=== PATIENT | female | born 1990 | race Caucasian/White ===

== ENCOUNTER 2025-02-07 10:22 | Emergency (ER) | payer BC, SELFPAY ==
--- NOTE | ~2025-02-07 | CT_ITS ---
CT abdomen pelvis w con Clinical History: rlq . Comparison: None Technique: Axial images lung bases to symphysis pubis 100 mL Omnipaque 350 Coronal, sagittal reformats CT images acquired with automatic exposure control for dose reduction DLP: 244 mGy-cm Findings: Lung bases: Clear. Visualized heart and pericardium: Unremarkable. Liver: Unremarkable. Gallbladder: Unremarkable. Spleen: Unremarkable. Pancreas: Unremarkable. Adrenal glands: Unremarkable. Kidneys: Right kidney- No hydronephrosis. No renal stones. Left kidney- No hydronephrosis. No renal stones. Distal esophagus/stomach: Unremarkable. Small bowel loops: Normal caliber and wall thickness. Colon: Normal caliber and wall thickness. Normal RLQ appendix. Nodes: No enlarged nodes. Peritoneum: No ascites. No free air. Urinary bladder: Unremarkable. Uterus: Unremarkable. Adnexa: No masses. Small pelvic free fluid. Bones: No acute bony abnormality. Soft tissues: Unremarkable. Aorta: No aneurysm or dissection. IVC: Unremarkable. Main portal vein/SMV/splenic vein: Patent. IMPRESSION: 1. Pelvic free fluid, slightly more than expected for normal physiologic levels. 2. Consider pelvic sonography. 3. Otherwise no acute abnormality. Reviewed, dictated and finalized at location R. IMPRESSION: 1. Pelvic free fluid, slightly more than expected for normal physiologic level s. 2. Consider pelvic sonography. 3. Otherwise no acute abnormality.
--- NOTE | ~2025-02-07 | US_ITS ---
EXAMINATION: US transvaginal, 02/07/2025 11:53 CDT HISTORY: rlq pain Comparison: None Technique: Madrid-scale and color Doppler images were obtained. Findings: Uterus: Uterus anteverted 6.2 x 3.6 x 3.6 cm. . Endometrium 12 mm. Right Ovary:Right ovary 3 x 2.8 x 1.8 cm, no adnexal mass, normal flow. Left Ovary: Left ovary 2.1 x 2.4 x 2.5 cm, no adnexal mass, normal flow. Free Fluid: Moderate free fluid noted. Impression: Moderate free fluid which may relate to sequelae of a ruptured ovarian cyst. Negative for torsion. Reviewed, dictated and finalized at location P. Impression: Moderate free fluid which may relate to sequelae of a ruptured ovarian cyst. Ne gative for torsion.
[2025-02-07 10:22] VITALS: BP 100/77; PULSE 70; RESP 18; TEMP 36.6; O2SAT 100
[2025-02-07 10:40] LABS: Hematocrit 42.7 % (35.0-49.0); Hemoglobin 14.4 g/dL (12.0-15.0); Immature Granulocyte Percent A 0.5 % (0.0-0.0); Lymphocytes Absolute Auto 2.63 K/mm3 (1.10-4.50); Mean Corpuscular HGB Conc 33.7 g/dL (32-36); Mean Corpuscular Hemoglobin 30.7 pg (27.0-31.0); Mean Corpuscular Volume 91.0 fL (78.0-102.0); Nucleated Red Blood Cells Absolute Auto 0.00 K/mm3 (0.00-0.00); Nucleated Red Blood Cells Perc 0.0 % (0-0.0); Platelet Count Result 254 K/mm3 (150-420); Red Blood Count 4.69 M/mm3 (4.20-5.40); White Blood Count 14.9 K/mm3 (4.8-10.8)
[2025-02-07 10:51] LABS: Alanine Aminotransferase 18 U/L (6-35); Albumin Level 4.9 g/dL (3.5-5.1); Alkaline Phosphatase 86 U/L (38-126); Anion Gap 11 mmol/L (4-12); Aspartate Amino Transferase 29 U/L (14-36); Bilirubin,Total 1.5 mg/dL (0.2-1.3); Blood Urea Nitrogen 12 mg/dL (7-17); Calcium 10.1 mg/dL (8.4-10.2); Carbon Dioxide 26 mmol/L (22-30); Chloride 106 mmol/L (98-107); Estimated CRCL calculation 88 ml/min; Estimated Glomerular Filt Rate > 60; Glucose 90 mg/dL (65-110); Osmolality Calculated 295 mOsm/kg (285-295); Potassium 3.7 mmol/L (3.4-5.0); Sodium 143 mmol/L (137-145); Total Protein 9.7 g/dL (6.3-8.2)
[2025-02-07] MEDS: KETOROLAC 30 MG/ML VIAL (*BKC) IV PUSH (10:57)
[2025-02-07] MEDS: SODIUM CHLORIDE 0.9% IV 1,000 ML 150 ML IV CONT (10:57)
[2025-02-07 11:08] LABS: Beta HCG Quantitative < 2.39 mIU/ML
--- NOTE | 2025-02-07 11:14 | ED.ABDPAIN ---
HPI - Abdominal Pain General Chief Complaint: Abdominal Pain Stated Complaint: ABD PAIN Time Seen by Provider: 02/07/25 10:23 Source: patient Mode of arrival: ambulatory Limitations: no limitations History of Present Illness HPI narrative: 34-year-old here with a complains of right-sided abdominal pain which started almost 2 days ago. also complains of nausea with no significant vomiting. Denies any fever or chills. MD elicited complaint: abdominal pain Pertinent past history: none Onset (ago): day(s) (2) Pain Consistency: constant Location: RUQ and RLQ Severity: moderate Quality: aching Radiation: RLQ Migration to: no migration Exacerbating factors: nothing Relieving factors: nothing Associated symptoms: nausea Related Data Home Medications ?Medication ?Instructions ?Recorded ?Confirmed ?Last Taken ?Type PROPANOLOL 20 mg PO BID 02/07/25 02/07/25 Unknown History Allergies Allergy/AdvReac Type Severity Reaction Status Date / Time diphenhydramine (From Allergy Unknown Unknown Verified 02/07/25 10:35 Benadryl) Penicillins Allergy Unknown Unknown Verified 02/07/25 10:35 Review of Systems Review of Systems: All systems reviewed & are unremarkable except as noted in HPI and below Constitutional: Constitutional: Reports no additional constitutional complaints Eyes: Eyes: Reports no additional eye complaints ENT: Reports system reviewed and no additional complaints, except as documented Cardiovascular: Cardiovascular: Reports no additional cardiovascular complaints Respiratory: Respiratory: Reports no additional respiratory complaints Gastrointestinal: Gastrointestinal: Reports as per HPI Integumentary/Breasts: Skin/Breast: Reports system reviewed and no additional complaints, except as docu Neurologic: Reports system reviewed and no additional complaints, except as documented Exam Narrative: GENERAL: Well-appearing, well-nourished, and in no acute distress. HEAD: Normocephalic, atraumatic. EYES: PERRLA and EOMI. ENT: Nares clear, no rhinorrhea or epistaxis. Mucous membranes moist. NECK: Supple. CHEST: Clear to auscultation. No respiratory distress. HEART: Regular rate and rhythm. No murmur heard. Normal peripheral pulses. ABDOMEN: Soft,tender on the right side of the abdomen more so in the right lower quadrant, nondistended, normal active bowel sounds. EXTREMITIES: Normal range of motion. No edema. SKIN: Warm, dry, no rash. NEURO: No focal deficits. Alert and oriented x3. PSYCH: Normal mood and affect. Course Course Emergency Course: Attention is given IV Toradol for pain control Zofran for nausea CT and lab work: T CT showed ruptured ovarian cyst. Patient sees a pain is slightly better advised her to take it easy for a few days, follow-up with the primary doctor Vital Signs Vital signs: Vital Signs Temperature 36.6 C 02/07/25 10:22 Pulse Rate 70 02/07/25 10:22 Respiratory Rate 18 02/07/25 10:22 Blood Pressure 100/77 02/07/25 10:22 Pulse Oximetry 100 02/07/25 10:22 Oxygen Delivery Room Air 02/07/25 10:22 Temperature 36.6 C 02/07/25 10:22 Pulse Rate 70 02/07/25 10:22 Respiratory Rate 18 02/07/25 10:22 Blood Pressure 100/77 02/07/25 10:22 Pulse Oximetry 100 02/07/25 10:22 Oxygen Delivery Room Air 02/07/25 10:22 MDM - Abdominal Pain Differential Diagnosis Differential diagnosis: Likely abdominal pain, acute appendicitis, calculus of kidney, constipation and other (ovarian cyst or torsion or rupture) Medical Records Attestation: I reviewed the patient's medical records. Lab Data Attestation: I reviewed the patient's lab results. 02/07/25 10:35 02/07/25 10:35 Labs: Lab Results 02/07/25 Range/Units 10:35 WBC 14.9 H (4.8-10.8) K/mm3 RBC 4.69 (4.20-5.40) M/mm3 Hgb 14.4 (12.0-15.0) g/dL Hct 42.7 (35.0-49.0) % MCV 91.0 (78.0-102.0) fL MCH 30.7 (27.0-31.0) pg MCHC 33.7 (32-36) g/dL RDW 13.2 (11.6-14.4) % Plt Count 254 (150-420) K/mm3 MPV 10.0 (9.2-11.8) fl Immature Gran % (Auto) 0.5 H (0.0-0.0) % Neut % (Auto) 77.0 H (50.0-70.0) % Lymph % (Auto) 17.7 L (18.0-42.0) % Saunders % (Auto) 3.8 (2.0-11.0) % Eos % (Auto) 0.8 L (1.0-6.0) % Baso % (Auto) 0.2 (0.0-1.0) % Lymph # (Auto) 2.63 (1.10-4.50) K/mm3 Saunders # (Auto) 0.57 (0.10-0.90) K/mm3 Eos # (Auto) 0.12 (0.02-0.50) K/mm3 Baso # (Auto) 0.03 (0.00-0.10) K/mm3 Abs Immat Gran (auto) 0.07 H (0.00-0.00) K/mm3 Absolute Neuts (auto) 11.46 H (1.70-7.20) K/mm3 Absolute Nucleated RBC 0.00 (0.00-0.00) K/mm3 Nucleated RBC % 0.0 (0-0.0) % Sodium 143 (137-145) mmol/L Potassium 3.7 (3.4-5.0) mmol/L Chloride 106 (98-107) mmol/L Carbon Dioxide 26 (22-30) mmol/L Anion Gap 11 (4-12) mmol/L BUN 12 (7-17) mg/dL Creatinine 0.68 L (0.7-1.0) mg/dL Estim Creat Clear Calc 88 ml/min Estimated GFR > 60 (59 - ) Glucose 90 (65-110) mg/dL Calculated Osmolality 295 (285-295) mOsm/kg Calcium 10.1 (8.4-10.2) mg/dL Total Bilirubin 1.5 H (0.2-1.3) mg/dL AST 29 (14-36) U/L ALT 18 (6-35) U/L Alkaline Phosphatase 86 (38-126) U/L Total Protein 9.7 H (6.3-8.2) g/dL Albumin 4.9 (3.5-5.1) g/dL Beta HCG, Quant < 2.39 mIU/ML Imaging Data Radiologist's impression: ITS Impressions Abdomen/Pelvis CT 02/07/25 11:32 IMPRESSION: 1. Pelvic free fluid, slightly more than expected for normal physiologic levels. 2. Consider pelvic sonography. 3. Otherwise no acute abnormality. Transvaginal US 02/07/25 12:34 Impression: Moderate free fluid which may relate to sequelae of a ruptured ovarian cyst. Negative for torsion. Discharge Plan Discharge Clinical Impression: Abdominal pain, RLQ, Ovarian cyst rupture Patient Disposition: Home Condition: Stable Instructions: Ruptured Ovarian Cyst (ED) Patient Language: Albanian Prescriptions: New ibuprofen 600 mg tablet 600 mg PO Q6H PRN (Reason: pain) Qty: 30 0RF ondansetron 4 mg tablet,disintegrating 4 mg PO Q6-8H PRN (Reason: nausea and vomiting) Qty: 14 0RF No Action PROPANOLOL 20 mg PO BID Follow-up/Referrals: Jeremías Rivas MD [Physician, Internal Medicine]
[2025-02-07] MEDS: ONDANSETRON INJ 4 MG/2 ML VIAL IV PUSH (12:36)
[2025-02-07 12:55] VITALS: BP 102/78; PULSE 72; RESP 16; TEMP 36.6; O2SAT 100
== END 2025-02-07 12:55 | disposition home or self-care (01) ==
PROVIDERS: Emergency Provider Family Medicine; Referring Provider Internal Medicine
DX: N83.209 Unspecified ovarian cyst, unspecified side (principal)
CPT/HCPCS: 36415; 74177; 76830; 80053; 84702; 85025; 96361; 96374; 96375; 99284; J1885; J2405; J7030; Q9967

== ENCOUNTER 2025-02-25 14:08 | Emergency (ER) | payer BC, SELFPAY ==
--- OUTSIDE RECORDS SUMMARY | 2024-02-23 04:00 | XMS_ITS | Continuity of Care Document ---
Author Organization [facility] Address [address] [place] [address] Phone Care Team Providers Care Ecommerce Merchandising Manager Name Role Phone Aden Laws PT Unavailable Unavailable Procedures Procedure Date FCE Each 15min Therapeutic Activities Neuromuscular Re-Ed Therapeutic Exercise Manual Therapy Therapeutic Activities Neuromuscular Re-Ed Therapeutic Exercise Therapeutic Activities Neuromuscular Re-Ed Therapeutic Exercise Manual Therapy Progress Note Therapeutic Activities Neuromuscular Re-Ed Manual Therapy Therapeutic Exercise Therapeutic Activities Neuromuscular Re-Ed Therapeutic Exercise Manual Therapy Therapeutic Activities Neuromuscular Re-Ed Therapeutic Exercise Manual Therapy Therapeutic Activities Neuromuscular Re-Ed Manual Therapy PT Evaluation High Complexity Therapeutic Activities Neuromuscular Re-Ed Advance Directives Directive Yes / No Effective Date File Name No Information Encounters Encounter Description Practice Location Reason(s) For Visit Diagnoses Date Provider Providers Copied on Encounter [facility], [address], [place], [place], [id number], tel:[phone] [place] No Information Veto Samaniego. . Referring Provider: Dave Delacruz, [address], [place], [address]. tel:[phone] [facility], [address], [id number], [place] tel:[phone] [place] No Information Florence Zhang. [facility] [place], [address], [place]. tel:[phone] Referring Provider: Jennifer Stinson, [address], [place], [address]. tel:[phone] [facility], [address], [id number], tel:[phone] [place] No Information Florence Zhang. [facility] [place], [address], [place]. tel:[phone] Referring Provider: Jennifer Stinson, [address], [place], [address]. tel:[phone] [facility], [address], [id number], tel:[phone] [place] No Information Rivera Jennifer. . Referring Provider: Jennifer Stinson, [address], [place], [address]. tel:[phone] [facility], [address], [id number], [place] tel:[phone] [place] No Information Rivera Jennifer. . Referring Provider: [address], [place], [address]. tel:[phone] [facility], [address], [id number], tel:[phone] [place] No Information Rivera Jennifer. . Referring Provider: [address], [place], [address]. tel:[phone] [facility], [address], [id number], tel:[phone] [place] No Information Rivera Jennifer. . Referring Provider: Jennifer Stinson, [address], [place], [address]. tel:[phone] [facility], [address], [id number], tel:[phone] [place] No Information Rivera Jennifer. . Referring Provider: Jennifer Stinson, [address], [place], [address]. tel:[phone] [facility], [address], [id number], tel:[phone] [place] No Information Yissel Rivera. . Referring Provider: Jennifer Stinson, [address], [place], [address]. tel:[phone] Family History Family Member Type Diagnosis Age At Onset No Information Payers Payer name Insurance type Covered green party ID Authoriza tion(s) Med[employer] EPO WC SP WC [id number] Social History Type Description Quantity Date Captured Comments Sex Female Smoking Status No Information Chief Complaint And Reason For Visit No Information Reason For Referral Reason For Referral No Information Plan Of Treatment Date Type Action Status Referral Ordered: Referrals: Specialist. Evaluate and Treat (related to Adjustment disorder with depressed mood) ordered Referral Ordered: Depression: Depression management program timeframe: 1 Day. (related to Depression) ordered Referral Ordered: Clinical Psychology (related to Depression) ordered History Of Present Illness Encounter Date Complaint History Of Prese nt Illness No Information Functional Status Date Functional Assessmen t No Information Instructions Date Instruction Additional Infor mation No Information Assessments Type Assessment Date No Information Patient Care Teams Name Effective Dates (start - stop) Status Members No Information
--- OUTSIDE RECORDS SUMMARY | 2024-02-23 04:00 | XMS_ITS | Continuity of Care Document ---
Author Organization [facility] Address [address] [place] [address] Phone Care Team Providers Care Retail Manager In Training Name Role Phone Aden Laws PT Unavailable Unavailable Procedures Procedure Date FCE Each 15min Therapeutic Activities Neuromuscular Re-Ed Therapeutic Exercise Manual Therapy Therapeutic Activities Neuromuscular Re-Ed Therapeutic Exercise Therapeutic Activities Neuromuscular Re-Ed Therapeutic Exercise Manual Therapy Progress Note Therapeutic Activities Neuromuscular Re-Ed Therapeutic Exercise Manual [...] Diagnoses Date Provider Providers Copied on Encounter [facility], [address], [place], [place], [id number], tel:[phone] [place] No Information Veto Samaniego. . Referring Provider: Dave Delacruz, [address], [place], [address]. tel:[phone] [facility], [address], [id number], [place] tel:[phone] [place] No Information Florence Zhang. [facility] [place], [address], [place]. tel:[phone] Referring Provider: Jennifer Stinosn, [address], [place], [address]. tel:[phone] [facility], [address], [id number], tel:[phone] [place] No Information Florence Zhang. [facility] [place], [address], [place]. tel:[phone] Referring Provider: Jennifer Stinson, [address], [place], [address]. tel:[phone] [facility], [address], [id number], tel:[phone] [place] No Information Rivera Jennifer. . Referring Provider: Jennifer Stinson, [address], [place], [address]. tel:[phone] [facility], [address], [id number], [place] tel:[phone] [place] No Information Rivera Jennifer. . Referring Provider: [address], [place], [address]. tel:[phone] [facility], [address], [id number], tel:[phone] [place] No Information Rivera Jennifer. . Referring Provider: [address], [place], [address]. tel:[phone] [facility], [address], [id number], tel:[phone] [place] No Information Rivera Jennifer. . Referring Provider: Jennifer Stinson, [address], [place], [address]. tel:[phone] [facility], [address], [id number], tel:[phone] [place] No Information Rivera Jennifer. . Referring Provider: Jennifer Stinson, [address], [place], [address]. tel:[phone] [facility], [address], [id number], tel:[phone] [place] No Information Yissel Rivera. . Referring Provider: Jennifer Stinson, [address], [place], [address]. tel:[phone] Family History Family Member Type Diagnosis Age At Onset No Information Payers Payer name Insurance type Covered constitution party ID Authoriza tion(s) Med[employer] EPO WC SP WC [id number] Social History Type Description Quantity Date Captured [...]
[2025-02-25 14:08] VITALS: BP 140/100; PULSE 128; RESP 22; TEMP 36.6; O2SAT 99
--- OUTSIDE RECORDS SUMMARY | 2025-02-25 14:46 | XMS_ITS | Encounter Summary ---
Author Organization [facility] Address [address] [place] [address] Care Team Providers Care Slab Lifting Supervisor Name Role Phone Jigna Fink FIRE CONTROL TECHNICIAN B Primary Care Provider [phone] Milind Cam MD Unavailable Unavailabl e Grant Mcgowan DO Unavailable [phone] Grant Mcgowan DO Unavailable [phone] Grant Mcgowan DO Unavailable [phone] None, Provider Primary Care Provider Unavaila ble Encounter Details Date Type Department Care Team (Late st Contact Info) Description 08/10/2018 Abstract [facility] AT [address] [address] Milind Cam MD Social History Tobacco Use Types Packs/Day Years Used Date Smoking Tobacco: Every Day Cigarettes 1.5 14 Alcohol Use Standard Drinks/Week Comments Yes 0 (1 standard drink = 0.6 oz pure alcohol) Occasional alcohol with history of heavy alcohol use Comments Unknown Sex and Gender Information Value Date Recorded Sex Assigned at Female 06/07/2024 7:14 PM REGISTERED PUBLIC HEALTH NURSE Legal Sex Female 3:10 AM CDT Gender Identity Not on file Sexual Orientation Not on file Occupation Industry Job Start Date Job End Date Unemployed Not on file Not on file Not on file documented as of this encounter Plan of Treatment Not on file documented as of this encounter Visit Diagnoses Not on filedocumented in this encounter Additional Health Concerns Infection Onset Date Last Indicated Resolved Time COVID-19 Rule Out 12/07/2019 12/07/2019 03/18/2021 3:42 PM REGISTERED PUBLIC HEALTH NURSE COVID-19 Rule Out 01/03/2025 01/03/2025 01/03/2025 2:18 PM CDT Respiratory Rule Out 01/03/2025 01/03/2025 025 2:18 PM CDT COVID-19 Confirmed 01/03/2025 01/03/2025 7:55 PM CDT documented as of this encounter Care Teams Slab Lifting Supervisor Relationship Specialty Start Date End Date Jigna Fink FNP [address] [place], [place] [id number] PCP - General Nurse Practitioner Family 08/06/18 06/06/24 None, Provider, PCP - General UNKNOWN PHYSICIAN SPECIALTY 06/07/24 Milind Cam MD [address] [place] [address] [employer] Advisor CARDIOVASCULAR DISEASE 08/06/18 06/06/24 Grant Mcgowan DO [address] [place], [place] [address] SURGERY 08/30/18 08/30/18 Grant Mcgowan DO [address] [place] [address] SURGERY 08/30/18 08/30/18 Grant Mcgowan DO [address] [place] [address] SURGERY 08/30/18 06/06/24 documented as of this encounter
--- OUTSIDE RECORDS SUMMARY | 2025-02-25 14:46 | XMS_ITS | Clinical Summary ---
Author Organization [facility] Address [facility] [place] [address] Care Team Providers Care Drafter Directional Survey Name Role Phone None, Provider MD Primary Care Provider Unavaila ble Allergies Active Allergy Reactions Criticality Noted Date Comments Diphenhydramine Anaphylaxis High 05/13/2020 Penicillins Unknown 09/12/2011 Medications ondansetron (ZOFRAN) 4 MG tablet Take 1 tablet (4 mg total) by mouth every 8 (eight) hours as needed for Nausea. Active propranolol (INDERAL) 20 MG tablet Take 1 tablet (20 mg total) by mouth 2 (two) times daily for 30 days. 60 tablet 01/03/2025 Active Problems Problem Noted Date Diagnosed Date Palpitations 08/24/2018 Current smoker 08/24/2018 Overview (08/24/2018): 1.5 packs of cigarettes daily since age 14, currently down to 2 cigarettes daily Chest pain 08/24/2018 Encounters Date Type Department Care Team Description 01/03/2025 1:27 PM CDT - 01/03/2025 2:49 PM CDT Emergency [facility] [address] [place] [address] Sid Velasquez DO Skin Problem Discharge Disposition: Home or Self Care (Routine Discharge) 01/03/2025 Travel from Last 3 Months Family History Medical History Relation Comments Asthma Brother Attention Deficit Brother Hypertension Brother Migraines Brother Alcohol Abuse Father Hypertension Father Migraines Father Breast Cancer Mother Osteoporosis Mother Thyroid Disease Mother Depression Sister Hypertension Sister Migraines Sister Relation Status Comments Brother Father Mother Sister Social History Tobacco Use Types Packs/Day Years Used Date Smoking Tobacco: Every Day Cigarettes 1.5 14 Smokeless Tobacco: Never Tobacco Cessation:Counseling Given: Yes Alcohol Use Standard Drinks/Week Comments Yes 0 (1 standard drink = 0.6 oz pure alcohol) Occasional alcohol with history of heavy alcohol use Comments No Sex and Gender Information Value Date Recorded Sex Assigned at Female 06/07/2024 7:14 PM HAND ROLLER ENGRAVER Legal Sex Female 3:10 AM CDT Gender Identity Not on file Sexual Orientation Not on file Occupation Industry Job Start Date Job End Date Unemployed Not on file Not on file Not on file Last Filed Vital Signs Vital Sign Reading Time Taken Comments Blood Pressure 112/88 01/03/2025 1:32 PM CDT Pulse 97 01/03/2025 1:32 PM CDT Temperature 37 C (98.6 F) 01/03/2025 1:32 PM CDT Respiratory Rate 16 01/03/2025 1:32 PM CDT Oxygen Saturation 99% 01/03/2025 1:32 PM CDT Inhaled Oxygen Concentration - - Weight 68.9 kg (152 lb) 01/03/2025 1:32 PM CDT Height 162.6 cm (5' 4) 01/03/2025 1:32 PM CDT Body Mass Index 26.09 01/03/2025 1:32 PM CDT Plan of Treatment Health Maintenance Due Date Last Done Comments Cervical Cancer Screening Pap Smear (Age 30 to 64) Every 3 Years 1992 Annual Physical 06/26/1995 Hepatitis B Vaccines (3 of 3 - 3-dose series) 12/09/1996 10/14/1996, 04/07/1996 DTaP, Tdap and Td Vaccines (6 - Tdap) 06/26/2003 11/21/1997, 03/26/1994, 06/27/1993, Additional history exists Hepatitis C 2010 Pneumococcal Vaccine: Pediatrics (0 to 5 Years) and At-Risk Patients (6 to 49 Years) (1 of 2 - PCV) 06/26/2011 HPV Vaccines (1 - 3-dose SCDM series) 06/26/2019 Cervical Cancer Screening Pap with HPV Testing (Age 30 to 64) Every 5 Years 2022 Cervical Cancer Screening with HPV 2022 COVID-19 Vaccine ( - season) 2024 Influenza Adult (#1) 2025 Hepatitis A Vaccines Aged Out No long er eligible based on patient's age to complete this topic Meningococcal B Vaccine Aged Out No l onger eligible based on patient's age to complete this topic Meningococcal Vaccine Aged Out No abdirahman citlali eligible based on patient's age to complete this topic RSV Immunizations Under 20 Months Aged Out No longer eligible based on patient's age to complete this topic Procedures Procedure Name Priority Date/Time Associated Diagnosis Comments INFLUENZA A & B STAT 01/03/2025 1:47 PM CDT CORONAVIRUS (COVID-19) ANTIGEN STAT 01/03/2025 1:47 PM CDT STREP A RAPID STAT 01/03/2025 1:47 PM CDT from Last 3 Months Results * (ABNORMAL) CORONAVIRUS (COVID-19) ANTIGEN (01/03/2025 1:47 PM CDT) CORONAVIRUS ANTIGEN IA POSITIVE( AA) NEGATIVE 01/03/2025 2:18 PM CDT [facility] Comment: CRITICAL VALUE THIS TEST HAS BEEN AUTHORIZED BY THE FDA UNDER AN EMERGENCY USE AUTHORIZATION (EUA) FOR USE BY AUTHORIZED LABORATORIES. CALLED TO TO VONNIE GROSSMAN AT 1417 BY [facility] READ BACK AND VERIFIED SPECIMEN TYPE NASAL 01/03/2025 1:52 PM CDT [facility] NASAL NASAL STRUCTURE / Unknown 01/03/2025 1:47 PM CDT Sid Velasquez DO MICROBIOLOGY - GENERAL ORDERAB LES Final Result [facility] [address] [place] [address], * INFLUENZA A & B (01/03/2025 1:47 PM CDT) SPECIMEN TYPE (INFLUENZA) NASAL 01/03/2025 1:52 PM CDT [facility] INFLUENZA A NEGATIVE NEGATIVE 01/03/2025 2:18 PM CDT [facility] INFLUENZA B NEGATIVE NEGATIVE 01/03/2025 2:18 PM CDT [facility] Comment: A NEGATIVE RESULT DOES NOT EXCLUDE INFLUENZA VIRUS INFECTION. IF INFLUENZA IS CIRCULATING IN YOUR COMMUNITY, A DIAGNOSIS OF INFLUENZA SHOULD BE CONSIDERED BASED ON A PATIENT'S CLINICAL PRESENTATION AND EMPIRIC ANTIVIRAL TREATMENT SHOULD BE CONSIDERED IF INDICATED. NASAL STRUCTURE / Unknown 01/03/2025 1:47 PM CDT us Sid Velasquez DO MICROBIOLOGY - GENERAL ORDERAB LES Final Result Performing Organization Address City/[facility]/ZIP Co de Phone Number [facility] [address] [place] [address], * STREP A RAPID (01/03/2025 1:47 PM CDT) SPECIMEN SOURCE THROAT 01/03/2025 1:52 PM CDT [facility] RAPID STREP TEST NEGATIVE NEGATIVE 01/03/2025 2:08 PM CDT [facility] STRUCTURE OF ANTERIOR REGION OF NECK / Unknown 01/03/2025 1:47 PM CDT us Sid Velasquez DO MICROBIOLOGY - GENERAL ORDERAB LES Final Result Performing Organization Address [facility] de Phone Number [facility] [address] [place] [phone], from Last 3 Months Insurance [employer] Advance Directives Documents on File Type Date Recorded Patient Flat Bed Operator Expl anation Advance Directives and Living Will 10/02/2015 12:00 AM [employer]IV[employer] Care Teams Drafter Directional Survey Relationship Specialty Start Date End Date None, Provider, PCP - General UNKNOWN PHYSICIAN SPECIALTY 06/07/24
--- NOTE | 2025-02-25 15:15 | PC.NURSE ---
1408 initial nurse assessment completed. informed pt to get dressed into gown. specimen cup placed on counter for urine collection. pt informed of need for urine specimen across the hallway. informed pt would return after gown applied to listen to bowel sounds with stethoscope. 1424 noted pt fully dressed and departing department without speaking to staff. pt eloped without being seen by er provider.
== END 2025-02-25 14:24 | disposition left against medical advice (07) ==
PROVIDERS: Emergency Provider Emergency Medicine; PCP Internal Medicine
DX: N83.8 Other noninflammatory disorders of ovary, fallopian tube and broad ligament (principal); R10.31 Right lower quadrant pain
CPT/HCPCS: 99199